=== PATIENT | female | born 1955 | race Caucasian/White ===

== ENCOUNTER 2017-01-12 13:40 | Emergency (ER) | payer OTHER | END 2017-01-12 16:34 | disposition home or self-care (01) | LOC: FER 13:40 | DX: J30.2 Other seasonal allergic rhinitis (principal); J40 Bronchitis, not specified as acute or chronic; F17.210 Nicotine dependence, cigarettes, uncomplicated; Z88.1 Allergy status to other antibiotic agents; Z88.2 Allergy status to sulfonamides | CPT/HCPCS: 71020; 87450; 87804; 87899; 99283 ==

== ENCOUNTER → 2021-12-25 | Day surgery (SDC) | payer MEDICARE, OTHER ==
[~2021-12-25] VITALS: Ht 162.6 cm; Wt 90.7 kg
[~2021-12-25] MED LIST: ASPIRIN EC81 MG PO; CETIRIZINE HCL10 MG PO; LISINOPRIL-HCT1 EAC1 PO; SKYRIZI PE150 MG/1 M SC; SYNTHROID100 MCG PO; VITAMIN C1000 MG PO; VITAMIN D350 MC3 PO; ZANTAC150 MG PO; ZOCOR40 MG PO
[2021-12-25 10:09] LABS: HCT 36.3 % (37.0-47.0); HGB 11.3 g/dl (12.5-16.0); MCH 27.2 pg (25.0-31.0); MCHC 31.1 g/dL (32.0-36.0); MCV 87.5 fL (78.0-100.0); MPV 11.5 fL (6.0-9.5); RBC 4.15 M/uL (4.20-5.40); RDW 14.1 % (11.5-14.0); WBC 9.1 K/uL (4.0-10.5)
[2021-12-25 10:30] LABS: ALBUMIN 3.6 g/dL (3.4-5.0); BILIRUBIN - TOTAL 0.3 mg/dL (0.2-1.0); BUN/CREAT RATIO (CALC) 13.4 RATIO; CREATININE 1.12 mg/dL (0.51-0.95); GLOBULIN (CALCULATION) 4.1 g/dL; POTASSIUM 4.2 mmol/L (3.5-5.1); TOTAL PROTEIN 7.7 g/dL (6.4-8.2)
== END | disposition home or self-care (01) ==
LOC: FAS 09:27
PROVIDERS: Orthopaedic Surgery
DX: M75.02 Adhesive capsulitis of left shoulder (principal); I10 Essential (primary) hypertension; E11.9 Type 2 diabetes mellitus without complications; E78.5 Hyperlipidemia, unspecified; K21.9 Gastro-esophageal reflux disease without esophagitis; E03.9 Hypothyroidism, unspecified; Z79.82 Long term (current) use of aspirin; Z79.899 Other long term (current) drug therapy; Z88.2 Allergy status to sulfonamides
CPT/HCPCS: 36415; 80053; J1040; J2250; J2704; J2795; J7120